=== PATIENT | female | born 1945 | race Caucasian/White ===

== ENCOUNTER 2017-02-23 15:21 | Emergency (ER) | payer MEDICARE, OTHER ==
--- NOTE | 2017-02-23 15:31 | UC ---
Truncal Trauma HPI - HPI Summary HPI Summary: 71 YEAR OLD FEMALE PRESENTS WITH COMPLAINS OF LEFT RIB PAIN. - History Of Current Complaint Stated Complaint: RIB INJURY Time Seen by Provider: 02/23/17 15:31 Hx Obtained From: Patient Onset/Duration: Sudden Onset Severity Initially: Moderate Severity Currently: Moderate Pain Scale Used: 0-10 Numeric - 5 Mechanism Of Injury: Blunt Trauma, Direct Blow Aggravating Factor(s): Deep Breathing - Allergies/Home Medications Allergies/Adverse Reactions: Allergies Allergy/AdvReac Type Severity Reaction Status Date / Time No Known Allergies Allergy Unverified 04/16/14 15:21 PMH/Surg Hx/FS Hx/Imm Hx Previously Healthy: Yes - Surgical History Surgical History: Yes Surgery Procedure, Year, and Place: hysterectomy 1992; cysts removed from ovary laparoscopy procedure; colonoscopy 2013; - Social History Alcohol Use: Rare Substance Use Type: None Smoking Status (MU): Former Smoker Have You Smoked in the Last Year: No When Did the Patient Quit Smoking/Using Tobacco: many years - Immunization History Most Recent Influenza Vaccination: never Most Recent Tetanus Shot: unknown Most Recent Pneumonia Vaccination: unsure Review of Systems Constitutional: Negative Skin: Negative Eyes: Negative ENT: Negative Respiratory: Negative Cardiovascular: Negative Gastrointestinal: Negative Genitourinary: Negative Motor: Negative Neurovascular: Negative Musculoskeletal: Other: - LFT RIB PAIN Neurological: Negative Psychological: Negative All Other Systems Reviewed And Are Negative: Yes Physical Exam Triage Information Reviewed: Yes Appearance: Pain Distress Vital Signs Reviewed: Yes Eye Exam: Normal ENT Exam: Normal Dental Exam: Normal Neck exam: Normal Neck: Positive: 1 Respiratory Exam: Normal Cardiovascular Exam: Normal Abdominal Exam: Normal Musculoskeletal: Positive: Other: - LEFT RIB PAIN Neurological Exam: Normal Psychological Exam: Normal Skin Exam: Normal Truncal Trauma Course/Dx - Differential Dx/Diagnosis Provider Diagnoses: LEFT RIB CONTUSION Discharge - Discharge Plan Condition: Stable Disposition: HOME Prescriptions: Acetaminop/Codeine 30 MG TAB* [Tylenol/Codeine 30 MG TAB*] 1 tab PO Q8H PRN #9 tab MDD 3 PRN Reason: Pain Ibuprofen TAB* [Motrin TAB* 800 MG] 800 mg PO Q6H #30 tab Methocarbamol TAB* [Robaxin 500 MG TAB*] 500 mg PO TID PRN #30 tab PRN Reason: Spasms - Back Patient Education Materials: Rib Contusion (ED) Referrals: Mrani Gleason MD [Primary Care Provider] -
[2017-02-23 15:41] VITALS: BP 124/58
--- NOTE | 2017-02-23 16:30 | RAD ---
Indication: LEFT anterior and axillary lower rib pain post jumping injury 2 days ago. Comparison: June 26, 2013 Technique: Dual energy PA chest and 4 view dedicated LEFT unilateral rib series. Report: Costochondral calcifications noted. Inferolateral costal margin skin marker indicating the site of clinical concern. No LEFT rib fracture, pleural effusion, or pneumothorax. Clear lungs. The heart, pulmonary vasculature, and mediastinal contours are unremarkable. Unremarkable soft tissue contours. Incidental note of calcific tendinopathy at the LEFT rotator cuff. IMPRESSION: No LEFT rib fracture or acute intrathoracic disease evident.
[2017-02-23] MEDS ORDERED: Acetaminop/Codeine 30 MG TAB* 1 TAB (300 MG/30 MG) PO ONE (16:32)
[2017-02-23] MEDS ORDERED: Acetaminop/Codeine 30 MG TAB* 1 TAB (300 MG/30 MG) ONE (16:34)
== END 2017-02-23 16:42 | disposition home or self-care (01) ==
LOC: UCEAST 15:21
DX: S20.20XA Contusion of thorax, unspecified, initial encounter (principal); W22.8XXA Striking against or struck by other objects, initial encounter
CPT/HCPCS: 99212; A9270-GY; G0463

== ENCOUNTER 2017-09-08 14:52 | Emergency (ER) | payer MEDICARE, OTHER ==
[2017-09-08] MEDS ORDERED: traMADol TAB* 50 MG PO ONE (16:12)
[2017-09-08] MEDS ORDERED: Tetan/Diph/Pertus SYR(Tdap)* 0.5 ML SYR(BOOSTRIX) use SYR IM ONE ×2 (16:16→16:17)
[2017-09-08] MEDS ORDERED: Acetaminophen TAB* 325 MG PO ONE (16:24)
[2017-09-08] MEDS ORDERED: Acetaminophen TAB* 325 MG ONE (16:26)
[2017-09-08] MEDS ORDERED: HYDROcodone/ACETAMIN 5-325 MG* 1 TAB PO ONE (16:32)
--- NOTE | 2017-09-08 16:50 | RAD ---
HISTORY: Deep laceration, injury to the first digit of the left hand COMPARISONS: None VIEWS: 3, Frontal, lateral, and oblique views of the first digit of the left hand FINDINGS: BONE DENSITY: Normal. BONES: There is no displaced fracture. JOINTS: There is advanced osteoarthritis of the first CMC joint and to a lesser extent of the first interphalangeal joint. ALIGNMENT: There is no dislocation. SOFT TISSUES: There is soft tissue irregularity consistent with the history of laceration. OTHER FINDINGS: None. IMPRESSION: OSTEOARTHRITIS. NO ACUTE OSSEOUS INJURY. IF SYMPTOMS PERSIST, RECOMMEND REPEAT IMAGING.
[2017-09-08] MEDS ORDERED: Lidocaine 2% PF * 5 ML VIAL INJ ONE (16:54)
[2017-09-08] MEDS ORDERED: Lidocaine 1%* 5 ML VIAL ONE (16:56)
[2017-09-08] MEDS ORDERED: Lidocaine 1%* 5 ML VIAL INJ ONE (16:58)
--- NOTE | 2017-09-08 17:45 | ED ---
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 She endorses pain, but is able to move about the MCP joint. Denies numbness, but states the area is tingling, but remains painful at a 10/10. She is tearful on examination. Takes baby aspirin daily, but denies other blood thinners. Otherwise healthy. Wearing acrylic nails. Bleeding is controlled on arrival. Denies other injuries. Continues to move about the wrist joint without pain. 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 Mechanism of Injury: Sharp/Blunt Trauma Onset/Duration: Sudden Onset Aggravating: Movement Alleviating: Compression Timing: Constant Onset Severity: Moderate Pain Intensity: 8 Pain Scale Used: 0-10 Numeric Associated Signs & Symptoms: Negative - Allergy/Home Medications Allergies/Adverse Reactions: Allergies Allergy/AdvReac Type Severity Reaction Status Date / Time No Known Allergies Allergy Unverified 09/08/17 14:57 PMH/Surg Hx/FS Hx/Imm Hx Previously Healthy: Yes Endocrine/Hematology History: Denies: Hx Diabetes, Hx Systemic Lupus Erythematosus, Hx Thyroid Disease Cardiovascular History: Reports: Hx Angina, Other Cardiovascular Problems/ Disorders - OCCASIONAL SYNCOPE - R./T VASOVASO EPISODES Denies: Hx Congestive Heart Failure, Hx Hypercholesterolemia, Hx Hypertension , Hx Peripheral Vascular Disease Respiratory History: Denies: Hx Asthma, Hx Chronic Obstructive Pulmonary Disease (COPD) GI History: Reports: Other GI Disorders - diarrhea, crampy History: Reports: Other Problems/Disorders - new dx cysts Denies: Hx Dialysis, Hx Renal Disease Musculoskeletal History: Reports: Hx Arthritis Denies: Hx Rheumatoid Arthritis, Hx Osteoporosis - OSTEOPENIA Sensory History: Reports: Hx Contacts or Glasses - READING GLASSES Denies: Hx Cataracts, Hx Glaucoma, Hx Hearing Aid Opthamlomology History: Reports: Hx Contacts or Glasses - READING GLASSES Denies: Hx Cataracts, Hx Glaucoma Neurological History: Denies: Hx Headaches, Hx Seizures, Hx Transient Ischemic Attacks (TIA), Other Neuro Impairments/Disorders Psychiatric History: Reports: Hx Anxiety - PRN MEDS Denies: Hx Depression - Cancer History Hx Chemotherapy: No Hx Radiation Therapy: No - Surgical History Surgery Procedure, Year, and Place: hysterectomy 1992; cysts removed from ovary laparoscopy procedure; colonoscopy 2013; Hx Anesthesia Reactions: Yes - LONGER TO WAKE AFTER SURGERY - Immunization History Hx Pertussis Vaccination: No Immunizations Up to Date: No Infectious Disease History: No Infectious Disease History: Denies: Hx Clostridium Difficile, Hx Hepatitis, Hx Human Immunodeficiency Virus (HIV), Hx of Known/Suspected MRSA, Hx Shingles, Hx Tuberculosis, Hx Known/ Suspected VRE, Hx Known/Suspected VRSA, History Other Infectious Disease, Traveled Outside the [place] in Last 30 Days - Social History Occupation: Employed Part-time Lives: With Family Alcohol Use: Occasionally Hx Substance Use: No Substance Use Type: Reports: None Hx Tobacco Use: Yes Smoking Status (MU): Former Smoker Have You Smoked in the Last Year: No Review of Systems Constitutional: Negative Eyes: Negative Cardiovascular: Negative Respiratory: Negative Positive: no symptoms reported, see HPI Positive: Decreased ROM - d/t swelling Positive: Other - maceration of the distal left plantar surface of the thumb and 1cm laceration to the dorsum of the thumb at nailbed Neurological: Negative Psychological: Normal All Other Systems Reviewed And Are Negative: Yes Physical Exam Triage Information Reviewed: Yes Vital Signs On Initial Exam: Initial Vitals Temp Pulse Resp BP Pulse Ox 98.5 F 85 18 131/60 100 09/08/17 14:53 09/08/17 14:53 09/08/17 14:53 09/08/17 14:53 09/08/17 14:53 Vital Signs Reviewed: Yes Appearance: Positive: Well-Appearing, Well-Nourished Skin: Positive: Skin Color Reflects Adequate Perfusion, Other - see above Eyes: Positive: EOMI, RYLEY Neck: Positive: Supple, No Lymphadenopathy Respiratory/Lung Sounds: Positive: Clear to Auscultation Cardiovascular: Positive: Pulses are Symmetrical in both Upper and Lower Extremities Musculoskeletal: Positive: Normal, Strength/ROM Intact Neurological: Positive: Speech Normal Psychiatric: Positive: Affect/Mood Appropriate AVPU Assessment: Alert Diagnostics - Vital Signs Vital Signs Temp Pulse Resp BP Pulse Ox 09/08/17 14:53 98.5 F 85 18 131/60 100 - Laboratory Lab Statement: Any lab studies that have been ordered have been reviewed, and results considered in the medical decision making process. Laceration Repair Course/Dx - Course Course Of Treatment: During the course of treatment, patient was given 2 hydrocodone/acetaminophen on arrival d/t pain. The area was cleansed thoroughly and patient sent to xray. Xray shows no acute findings of bone involvement. There is significant swelling to the bed of the plantar distal tip of the thumb with maceration. It is difficult to assess the flexor tendon involvement as patient continues to be able to provide a small amount of flexion to the IP joint, but this is limited d/t swelling. Extensor tendon appears to be intact. There is a laceration to the dorsum of the distal tip of the thumb extending into the matrix bed and nail bed. I have asked Dr. Salgado to also assess patients wound. Bedside washout obtained to thoroughly explore the wound. Digital block using 3ml lidocaine without epi with good effect. Copious jet irrigation using isontonic saline with 20cc syringe x 5 minutes. Bone, tendon or joint injury does not appear to be involved. The wound did not appear grossly contaminated. Timeout obtained. Sterile procedure used as combination of loose partial closure and primary closure was necessary. Irregular, deep, approximately 4cm laceration to the plantar surface and 1cm to the dorsal surface of the distal tips. 8, 4-0 prolene non-absorabable sutures placed. Patient tolerated well. Surgicel to the wound as area continued to slowly bleed. This ceased after 15 minutes. Medicated occlusive gauze wrapped and kerlix tube gauze placed. Patient taught how to change bandage and cleanse wound. Referral to hand surgeon for tomorrow or early next week. Patient understands return precautions. Oxycodone given for pain control. Augmentin prescribed x 7 days d/t deep tissue wound. Tetanus updated. - Differential Dx Differental Diagnoses: Laceration - Clinical Impression Provider Diagnoses: Laceration of left thumb with damage to nail - Physician Notifications Instructed by Provider To: Have Pt Call For Appt. - Dr. Hooker Discharge - Sign-Out/Discharge Documenting (check all that apply): Discharge/Admit/Transfer - Discharge Plan Condition: Stable Disposition: HOME Prescriptions: Amoxicillin/Clavulanate TAB* [Augmentin TAB 875*] 875 mg PO BID #14 tab Oxycodone TAB(NF) [Oxycodone HCl 10 MG] 10 mg PO Q6H PRN #16 tab MDD 4 PRN Reason: Pain Patient Education Materials: Skin Avulsion (ED), Nail Avulsion (ED) Referrals: Marquis Hooker MD [Medical Doctor] - Marni Gleason MD [Primary Care Provider] - Additional Instructions: Please follow up with Dr. Morro ramos. oxycocodone as needed for pain keep the bandage applied until follow up Augmentin twice daily x 7 days - Billing Disposition and Condition Condition: STABLE Disposition: HOME
--- NOTE | 2017-09-08 17:45 | ED ---
Progress - Progress Note Progress Note: I supervised the PA and I performed a Hx and PE on this patient. 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 Bleeding controlled. Td given. PE: complex wounds to the distal thumb, area of matrix. Has gel nails in place. Plan: PA lac repair. Abx. Tdap. Ortho f/u. Discharge - Sign-Out/Discharge Documenting (check all that apply): Discharge/Admit/Transfer - Discharge Plan Condition: Stable Disposition: HOME Prescriptions: Amoxicillin/Clavulanate TAB* [Augmentin TAB 875*] 875 mg PO BID #14 tab Oxycodone TAB(NF) [Oxycodone HCl 10 MG] 10 mg PO Q6H PRN #16 tab MDD 4 PRN Reason: Pain Patient Education Materials: Skin Avulsion (ED), Nail Avulsion (ED) Referrals: Marni Gleason MD [Primary Care Provider] - - Billing Disposition and Condition Condition: STABLE Disposition: HOME
[2017-09-08 18:04] VITALS: BP 132/61
== END 2017-09-08 18:03 | disposition home or self-care (01) ==
LOC: ED 14:52
DX: S61.012A Laceration without foreign body of left thumb without damage to nail, initial encounter (principal); W29.0XXA Contact with powered kitchen appliance, initial encounter; Y92.9 Unspecified place or not applicable
CPT/HCPCS: 90471; 90715; 99282; A9270-GY